=== PATIENT | male | born 1990 | race Caucasian/White ===

== ENCOUNTER 2017-07-14 17:11 | Emergency (ER) ==
[2017-07-14 17:15] VITALS: BP 128/79; TEMP 97.3; BMI 26.6
[2017-07-14] MEDS ORDERED: NORCO 10-325 PO STA (17:25)
--- NOTE | 2017-07-14 17:59 | CT ---
EXAM: CT head without contrast. HISTORY: Headaches. PROCEDURE: Contiguous axial CT images of the head without contrast with coronal and sagittal reforma ts. FINDINGS: The ventricles and basal cisterns are normal in size and configuration. No evidence of ma ss or midline shift. No intracranial hemorrhage or evidence of large vessel infarct. No extra-axial fluid collection. The paranasal sinuses and mastoid air cells are well-aerated. Impression: Negative CT of the head.
--- NOTE | 2017-07-14 18:02 | ED.PDOC ---
General ED Provider: Dr. MINH ANDUJAR Chief Complaint: Headache Stated Complaint: HEADACHE Time Seen by Physician: 17:12 (CHRONIC HEADACHE X 6 MONTHS NEGATIVE PRIOR IMAGING) Mode of Arrival: Walk-In Information Source: Patient Exam Limitations: No limitations Nursing and Triage Documentation Reviewed and Agree: Yes Neurological Complaint Exam - Headache Complaint/Exam Onset: Gradual Duration: TODAY BUT SAME PAIN X 6 MONTHS Symptoms Are: Still present Timing: Constant Episodes Lasting: Days Worst Headache Ever: No Initial Severity: Mild Current Severity: Mild Location: Diffuse Character: Reports: Dull Aggravating: Reports: None Alleviating: Reports: None Associated Signs and Symptoms: Denies: Dizziness, Seizure, Nausea, Vomiting, Sinus pressure, Fever, Neck pain, Neck stiffness, Decreased LOC, Visual changes Related History: Reports: Similar episode Related Surgical History: Reports: None SAH Risk Factors: Reports: None Meningitis Risk Factors: Reports: None SDH Risk Factors: Reports: None Temporal Arteritis Risk Factors: Reports: None Normal Head CT Within Last 12 Months: No Fundoscopic Exam: Present: Normal Findings Papilledema Present: No Temporal Artery Tenderness: Present: None TMJ Tenderness: Present: None Glascow Coma Scale (see protocol): 15 Meningeal Signs Positive: No Pain on Passive Flexion-Positive Kernig's: No ROM Limited In: No Limitiations Focal Weakness: Present: None Focal Sensory Loss: Present: None Gait: Normal Nystagmus Present: No Gag Reflex Present: Yes [id number]: Normal Findings Romberg Test Positive: No Babinski Sign: Negative Right, Negative Left Differential Diagnoses: Migraine, Sinus Headache, Tension Headache Review of Systems - Review Of Systems Constitutional: Reports: No symptoms Eyes: Reports: No symptoms Ears, Nose, Mouth, Throat: Reports: No symptoms Respiratory: Reports: No symptoms Cardiac: Reports: No symptoms GI: Reports: No symptoms : Reports: No symptoms Musculoskeletal: Reports: No symptoms Skin: Reports: No symptoms Neurological: Reports: Headache Endocrine: Reports: No symptoms Hematologic/Lymphatic: Reports: No symptoms All Other Systems: Reviewed and Negative Past Medical History - Past Medical History Previously Healthy: Yes Endocrine: Reports: None Cardiovascular: Reports: None Respiratory: Reports: None Hematological: Reports: None Gastrointestinal: Reports: None Genitourinary: Reports: None Neuro/Psych: Reports: None Musculoskeletal: Reports: None Cancer: Reports: None - Surgical History General Surgical History: Reports: None - Family History Family History: Reports: None - Social History Smoking Status: Never smoker Hx Substance Use: No Alcohol Screening: Occasionally Physical Exam - Physical Exam Appearance: Well-appearing, No pain distress, Well-nourished Eyes: LIDIA, EOMI, Conjunctiva clear ENT: Ears normal, Nose normal, Oropharynx normal Respiratory: Airway patent, Breath sounds clear, Breath sounds equal, Respirations nonlabored Cardiovascular: RRR, Pulses normal, No rub, No murmur GI/: Soft, Nontender, No masses, Bowel sounds normal, No Organomegaly Musculoskeletal: Normal strength, ROM intact, No edema, No calf tenderness Skin: Warm, Dry, Normal color Neurological: Sensation intact, Motor intact, Reflexes intact, Cranial nerves intact, Alert, Oriented Psychiatric: Affect appropriate, Mood appropriate Interpretation - Radiology Interpretation Radiology Interpretation By: Radiologist Radiology Results: No acute changes Critical Care Note - Critical Care Note Total Time (mins): 0 Course - Course Orders, Labs, Meds: Orders Category Date Time Status Hydrocodone Bit/Acetaminophen [[place] 10-325] MEDS 07/14/17 17:25 Discontinued 1 tab PO ONCE STA CT HEAD W/O CONTRAST Stat RADS 07/14/17 17:24 Completed Medications Discontinued Medications Generic Name Dose Route Start Last Admin Trade Name Freq PRN Reason Stop Dose Admin Acetaminophen/Hydrocodone Bitart 1 tab 07/14/17 17:25 07/14/17 17:41 [place] 10-325 PO 07/14/17 17:26 1 tab ONCE STA Administration Vital Signs: Temp Pulse Resp BP Pulse Ox 07/14/17 17:12 97.3 F L 72 16 128/79 96 Departure - Departure Time of Disposition: 18:02 (MRI DISCUSSED WITH PT DERIC PRESENT AT ALL TIMES) Disposition: HOME SELF-CARE Discharge Problem: Headache Instructions: Tension Headache (ED), Migraine Headache (ED), Acute Headache (ED ), General Headache (ED) Condition: Good Pt referred to PMD for follow-up: Yes Additional Instructions: Please call your Family Physician as soon as possible to schedule a follow-up appointment. Allergies/Adverse Reactions: Allergies No Known Allergies Allergy (Verified 07/14/17 17:15) Home Medications: Ambulatory Orders 1 [No Reported Medications] 07/14/17 Disposition Discussed With: Patient, Family
== END 2017-07-14 18:13 | disposition home or self-care (01) ==
LOC: ED 17:11
DX: R51 Headache (principal)
CPT/HCPCS: 99283

== ENCOUNTER 2017-07-16 07:31 | Outpatient (CLI) ==
[2017-07-16 07:57] LABS: BASOPHILS % (AUTO) 0.5 % (0.0-3.0); EOSINOPHILS # (AUTO) 0.2 K/ul (0.0-0.7); EOSINOPHILS % (AUTO) 4.1 % (0.0-7.0); HEMATOCRIT 41.6 % (42.0-52.0); IMMATURE GRANULOCYTE % (AUTO) 0.2 % (0.0-5.0); LYMPHOCYTES # (AUTO) 2.4 K/uL (0.60-3.4); LYMPHOCYTES % (AUTO) 40.4 (10.0-50.0); MEAN CORPUSCULAR HEMOGLOBIN 28.2 pg (27.0-31.0); MEAN CORPUSCULAR HGB CONC 33.7 (31.8-35.4); MEAN CORPUSCULAR VOLUME 83.7 fl (80.0-94.0); MONOCYTES # (AUTO) 0.5 K/uL (0.4-2.0); MONOCYTES % (AUTO) 8.7 (0-10); NEUTROPHILS # (AUTO) 2.7 K/ul (2.0-6.9); NEUTROPHILS % (AUTO) 46.1; PLATELET COUNT 202 10^3/uL (140-440); RED BLOOD COUNT 4.97 10^6/ul (4.70-6.10); WHITE BLOOD COUNT 5.87 K/ul (4.2-10.2)
[2017-07-16 08:45] LABS: ALBUMIN 3.6 g/dL (3.4-5.0); ALBUMIN/GLOBULIN RATIO 0.9; ANION GAP 11.5; BILIRUBIN,TOTAL 0.26 mg/dL (0.00-1.20); BUN/CREATININE RATIO 18.82; CALCIUM 9.7 mg/dL (8.2-10.2); CHOL/HDL RATIO 5.8 (4.5-6.4); CREATININE 0.85 mg/dL (0.60-1.10); POTASSIUM 4.5 mmol/L (3.5-5.1); TOTAL PROTEIN 7.6 g/dL (6.4-8.2)
--- NOTE | 2017-07-16 10:06 | MRI ---
EXAM: MRI brain without IV contrast. DATE: 16 July 2017. HISTORY: Migraine headaches, without status migrainous. TECHNIQUE: Sagittal T1W, axial T2W, axial FLAIR, axial T1W, axial DWI, and coronal T2W GRE sequences of the brain were obtained using 1.5 Cesilia magnet. No IV contrast. COMPARISON: CT head 14 July 2017. FINDINGS: The ventricles, cisterns, and subarachnoid spaces are normal in size and configuration. N o midline shift, mass effect or abnormal extra-axial fluid collection is apparent. No acute infarct, hemorrhage or neoplasm is identified. A 2.3 mm T2W/FLAIR bright focus is noted in the left posterio r temporal lobe near the posterior horn left lateral ventricle. Subtle T2W/FLAIR bright, 1 x 4 mm fo cus is seen within the left parietal cheatham radiata on axial image #14. Bilateral paramidline FLAIR hyperintense foci (3 mm right, 4 mm left) on axial image number 12 near the posterior margin of the s plenium corpus callosum do not have corresponding abnormalities on many sequences, and may be artifac ts. The kay - white matter differentiation is normal. The 7th/8th cranial nerve complexes, cerebel lopontine angles, brainstem, and visible cervical spinal cord are normal. There is no cerebellar ton sillar ectopia. The pituitary gland is normal in size and signal. Corpus callosum is normal in size and configuration. Left vertebral artery is dominant. Flow voids are present in the major intracra nial arteries and in the dural venous sinuses. No aneurysm, AVM or dural venous sinus thrombosis is apparent. No orbit abnormality is identified. The mastoid air cells are unremarkable. Moderate/lar ge right middle turbinate mellisa bullosa is observed, with adjacent mild leftward nasoseptal deviatio n. There is no acute sinusitis. No neck mass or lymphadenopathy is detected. No calvarial neoplasm or acute fracture is evident. IMPRESSIONS: 1. No acute infarct, hemorrhage, suspicious mass or hydrocephalus. 2. Few, nonspecific cerebral FLAIR bright foci. DDX: Leukomalacia associated with migraine headach es, small vessel disease, vasculitis, demyelinating disease.
== END 2017-07-16 07:32 | disposition home or self-care (01) ==
LOC: RAD 07:31
PROVIDERS: ATTEND Nurse Practitioner Family
DX: G43.909 Migraine, unspecified, not intractable, without status migrainosus (principal); Z00.00 Encounter for general adult medical examination without abnormal findings
CPT/HCPCS: 36415; 80053; 80061; 84443; 85025

== ENCOUNTER 2019-05-16 02:09 | Emergency (ER) ==
[2019-05-16 02:22] VITALS: TEMP 99.2; BMI 30.2
[2019-05-16] MEDS ORDERED: ZOFRAN 4 MG/2 ML IVP STA ×2 (02:26→03:51)
[2019-05-16] MEDS ORDERED: SODIUM CHLORIDE 1,000 ML IV STA (02:26)
[2019-05-16] MEDS ORDERED: DILAUDID 1 MG/ML SYRINGE IVP STA (02:33)
[2019-05-16] MEDS ORDERED: TORADOL IVP STA (02:33)
--- NOTE | 2019-05-16 02:33 | ED.PDOC ---
General ED Provider: Dr. EFRAIN DUKE Chief Complaint: Abdominal Pain Stated Complaint: Left lower abdominal pain radiating to the Groin and left leg for 2 hour with associated nausea and vomiting. Time Seen by Physician: 02:26 Mode of Arrival: Wheelchair Information Source: Patient Primary Care Provider: DONOVAN WISE Nursing and Triage Documentation Reviewed and Agree: Yes Does patient meet sepsis criteria?: No System Inflammatory Response Syndrome: Not Applicable Sepsis Protocol: For patient's 13 years and over: Temp is 96.8 and below OR 101 and greater Pulse >90 BPM Resp >20/minute Acutely Altered Mental Status Are patient's symptoms suggestive of a new infection, such as: -Pneumonia -Skin, Soft Tissue -Endocarditis -UTI -Bone, Joint Infection -Implantable Device -Acute Abdominal Infection -Wound Infection -Meningitis -Blood Stream Catheter Infection -Unknown GI Complaint Exam - Abdominal Pain Complaint/Exam Onset: Sudden Duration: 2 hours Symptoms Are: Still present Timing: Constant Initial Severity: Severe Current Severity: Severe Location of Pain: RLQ Radiates To: Reports: Inguinal Character: Reports: Aching, Throbbing, Tearing Alleviating: Reports: None Associated Signs and Symptoms: Reports: Back pain, Nausea, Vomiting AAA Risk Factors: Reports: None Cardiac Risk Factors: Reports: None Testicular Torsion Risk Factors: Reports: None Surgical Obstruction Risk Factors: Reports: None Related Surgical History: Reports: None Abdominal Findings: Present: None Differential Diagnoses: Renal Colic, UTI, Epididymitis, Prostatitis Review of Systems - Review Of Systems Constitutional: Reports: No symptoms Eyes: Reports: No symptoms Ears, Nose, Mouth, Throat: Reports: No symptoms Respiratory: Reports: No symptoms Cardiac: Reports: No symptoms GI: Reports: Nausea, Vomiting : Reports: No symptoms Musculoskeletal: Reports: No symptoms Skin: Reports: No symptoms Neurological: Reports: No symptoms Endocrine: Reports: No symptoms Hematologic/Lymphatic: Reports: No symptoms All Other Systems: Reviewed and Negative Past Medical History - Past Medical History Previously Healthy: Yes Endocrine: Reports: None Cardiovascular: Reports: None Respiratory: Reports: None Hematological: Reports: None Gastrointestinal: Reports: None Genitourinary: Reports: None Neuro/Psych: Reports: None Musculoskeletal: Reports: None Cancer: Reports: None - Surgical History General Surgical History: Reports: None - Family History Family History: Reports: None - Social History Smoking Status: Never smoker Hx Substance Use: No Alcohol Screening: Occasionally - Immunizations Tetanus Shot up to Date: Yes Physical Exam - Physical Exam Appearance: Ill-appearing Ill-appearing: Moderate Pain Distress: Severe Neck: Supple Respiratory: Airway patent Cardiovascular: RRR, Pulses normal, No rub, No murmur GI/: Soft, Nontender, No masses, Bowel sounds normal, No Organomegaly Musculoskeletal: Normal strength, ROM intact, No edema, No calf tenderness Skin: Warm, Dry Neurological: Alert, Oriented Psychiatric: Anxious Interpretation - Radiology Interpretation Radiology Interpretation By: Radiologist Radiology Results: Positive (3 mm stone in the left UVJ) Exam Interpreted: CT Scan Re-Evaluation - Re-Evaluation Time of Re-Evaluation: 03:41 Status: Improved Vital Signs Stable: Yes Pain Level: better Critical Care Note - Critical Care Note Total Time (mins): 30 Course - Course Hematology/Chemistry: 05/16/19 02:36 05/16/19 02:36 Orders, Labs, Meds: Lab Review 05/16/19 05/16/19 02:36 02:36 WBC 9.70 RBC 5.13 Hgb 14.2 Hct 42.0 MCV 81.9 MCH 27.7 MCHC 33.8 RDW Coeff of Susan 13.0 Plt Count 231 Immature Gran % (Auto) 0.5 Neut % (Auto) 71.7 Lymph % (Auto) 20.3 [place] % (Auto) 5.6 Eos % (Auto) 1.6 Baso % (Auto) 0.3 Immature Gran # (Auto) 0.1 Neut # (Auto) 7.0 H Lymph # (Auto) 2.0 [place] # (Auto) 0.5 Eos # (Auto) 0.2 Baso # (Auto) 0.0 Sodium 137.2 Potassium 3.84 Chloride 101.5 Carbon Dioxide 26.0 Anion Gap 13.54 BUN 19.8 Creatinine 0.96 Estimated GFR (MDRD) 92.00 BUN/Creatinine Ratio 20.62 Glucose 125.3 H Calcium 9.21 Total Bilirubin 0.44 AST 59.5 H ALT 46.2 Alkaline Phosphatase 79.4 Total Protein 8.49 H Albumin 4.64 Globulin 3.85 Albumin/Globulin Ratio 1.20 Amylase 76.5 Lipase 75.1 Orders Category Date Time Status AMYLASE Stat LAB 05/16/19 02:36 Completed CBC W/ AUTO DIFF Stat LAB 05/16/19 02:36 Completed COMPREHENSIVE METABOLIC PANEL Stat LAB 05/16/19 02:36 Completed LIPASE Stat LAB 05/16/19 02:36 Completed URINALYSIS C & S IF INDICATED Stat LAB 05/16/19 02:26 Uncollected Hydromorphone HCl [Dilaudid 1 mg/ml Syringe] MEDS 05/16/19 02:33 Discontinued 1 mg IVP ONCE STA Ketorolac Tromethamine [Toradol] MEDS 05/16/19 02:33 Discontinued 30 mg IVP ONCE STA Ondansetron HCl/Pf [Zofran 4 mg/2 ml] MEDS 05/16/19 02:26 Discontinued 4 mg IVP ONCE STA Sodium Chloride 0.9% [Sodium Chloride] 1,000 ml MEDS 05/16/19 02:26 Discontinued IV BOLUS Tamsulosin HCl [Flomax] MEDS 05/16/19 03:40 Stat 0.8 mg PO ONCE STA CT ABD/PEL WO RENAL STONE PROT Stat RADS 05/16/19 02:26 Completed Medications Discontinued Medications Generic Name Dose Route Start Last Admin Trade Name Freq PRN Reason Stop Dose Admin Hydromorphone HCl 1 mg 05/16/19 02:33 05/16/19 03:12 Dilaudid 1 Mg/Ml Syringe IVP 05/16/19 02:34 1 mg ONCE STA Administration Sodium Chloride 1,000 mls @ 1,000 mls/hr 05/16/19 02:26 05/16/19 02:36 Sodium Chloride IV 05/16/19 03:25 1,000 mls/hr BOLUS STA Administration Ketorolac Tromethamine 30 mg 05/16/19 02:33 05/16/19 02:39 Toradol IVP 05/16/19 02:34 30 mg ONCE STA Administration Ondansetron HCl 4 mg 05/16/19 02:26 05/16/19 02:38 Zofran 4 Mg/2 Ml IVP 05/16/19 02:27 4 mg ONCE STA Administration Vital Signs: Temp Pulse Resp BP Pulse Ox 05/16/19 03:07 130/89 05/16/19 02:10 99.2 F 89 20 155/108 H 96 Departure - Departure Time of Disposition: 03:42 Disposition: HOME SELF-CARE Discharge Problem: Renal calculi Instructions: Kidney Stones (ED) Condition: Poor Pt referred to PMD for follow-up: Yes IPMP verified?: No Additional Instructions: Avoid SODA take medications as prescribed. Push water or Lemonade Prescriptions: Hydrocodone Bit/Acetaminophen [[place] 5-325] 1 each PO Q6HR PRN #20 tablet PRN Reason: severe pain Tamsulosin HCl [Flomax] 0.4 mg PO DAILY #10 cap.er.24h Allergies/Adverse Reactions: Allergies No Known Allergies Allergy (Verified 05/16/19 02:28) Home Medications: Ambulatory Orders Hydrocodone Bit/Acetaminophen [[place] 5-325] 1 each PO Q6HR PRN #20 tablet Tamsulosin HCl [Flomax] 0.4 mg PO DAILY #10 cap.er.24h 05/16/19 Disposition Discussed With: Patient, Family
[2019-05-16 03:07] VITALS: BP 130/89
--- NOTE | 2019-05-16 03:14 | CT ---
EXAM: CT scan abdomen pelvis without contrast HISTORY: Left lower quadrant pain COMPARISON: None. FINDINGS: Helically acquired axial images obtained of the abdomen pelvis without contrast utilizing 3-mm collimation. Sagittal and coronal reactions were imaged and reviewed. Visualized lung bases ar e clear. Fatty infiltration is of throughout the liver. The gallbladder is fluid filled without cho lelithiasis. The pancreas spleen and adrenal glands have normal unenhanced CT appearance.. The abdom inal aorta is normal in course and caliber. The right kidney is morphologically normal. There is a 5 mm nonobstructive calculus lower pole left kidney. There is moderate left-sided hydronephrosis sec ondary to a 3 mm calculus at the left ureteropelvic junction. The prostate gland normal in size. Th e bladder is unremarkable. There is no free fluid. There is normal appendix.. Bone windows reveals no evidence of lytic or blastic lesions. IMPRESSION: Left-sided hydronephrosis secondary to a 3 mm calculus at the left ureteropelvic junction. Nonobstructive left-sided nephrolithiasis. Fatty liver. Tiny fat containing umbilical hernia
[2019-05-16] MEDS ORDERED: FLOMAX PO STA (03:40)
== END 2019-05-16 04:08 | disposition home or self-care (01) ==
LOC: ED 02:09
DX: N20.0 Calculus of kidney (principal)
CPT/HCPCS: 36415; 80053; 82150; 83690; 85025; 96361; 96374; 96375; 96376; 99283

== ENCOUNTER 2019-05-18 21:04 | Outpatient (CLI) ==
[2019-05-18 13:48] VITALS: BMI 29.3
== END 2019-05-18 21:24 | disposition short-term general hospital (02) ==
LOC: AMBL 21:04
PROVIDERS: ATTEND Internal Medicine Geriatric Medicine
DX: N13.2 Hydronephrosis with renal and ureteral calculous obstruction (principal); M54.9 Dorsalgia, unspecified